=== PATIENT | female | born 1995 | race Caucasian/White ===

== ENCOUNTER 2022-03-26 03:47 | Emergency (ER) | payer BC ==
[~2022-03-26] VITALS: Ht 162.6 cm; Wt 83.5 kg
[2022-03-26 04:02] VITALS: BP_SYST 112
[2022-03-26] MEDS ORDERED: AMOX500C2 PO (04:22)
[2022-03-26] MEDS ORDERED: TRAM50TA2 PO (04:22)
[2022-03-26 04:52] VITALS: BP_SYST 126
== END 2022-03-26 04:48 | disposition home or self-care (01) ==
LOC: SED 03:47
DX: H66.92 Otitis media, unspecified, left ear (principal); R05.9 Cough, unspecified; R09.81 Nasal congestion; Z79.899 Other long term (current) drug therapy
CPT/HCPCS: 99283